=== PATIENT | female | born 2000 | race Hispanic/Latino ===

== ENCOUNTER 2022-06-21 11:58 | Emergency (ER) | payer OTHER ==
[~2022-06-21] VITALS: Ht 160 cm; Wt 80.0 kg
[2022-06-21] VITALS (8 sets, daily range): BP systolic 97–143; BP diastolic 46–74
[~2022-06-21 11:58] MED LIST: IBUPROFEN600 MG PO; TYLENOL # 31 TA1 PO; TYLENOL & COD12.5 ML PO; TYLENOL CHL1 OR; ZITHROMAX250 MG PO
[2022-06-21] MEDS ORDERED: NAPROXEN500 MG PO (14:33)
[2022-06-21] MEDS ORDERED: FLEXERIL5 M1 PO (14:33)
== END 2022-06-21 14:55 | disposition home or self-care (01) ==
LOC: ED 11:58
DX: S16.1XXA Strain of muscle, fascia and tendon at neck level, initial encounter (principal); X50.0XXA Overexertion from strenuous movement or load, initial encounter

== ENCOUNTER 2023-09-17 19:09 | Emergency (ER) | payer OTHER ==
[2023-09-17] VITALS (12 sets, daily range): BP systolic 125–172; BP diastolic 82–105
[~2023-09-17] VITALS: Ht 160 cm; Wt 90.0 kg
[~2023-09-17 19:09] MED LIST changes: +FLEXERIL5 M1 PO; +NAPROXEN500 MG PO
[2023-09-17 20:07] LABS: BASO% 0.4 % (0-3); EOS% 3.1 % (0-8); HEMATOCRIT 29.7 % (37.0-47.0); HEMOGLOBIN 8.6 g/dl (12.0-16.0); LYMPH% 21.8 % (15-41); MEAN CORPUSCULAR HGB 23.5 pG CALC (26.0-32.0); MONO% 6.6 % (2-13); NEUT# 6.72 thou/uL (2.00-7.15); NEUT% 66.1 % (42-76); RED BLOOD COUNT 3.66 mill/uL (4.20-5.60); RED CELL DISTRI WIDTH 27.6 % (11.5-15.5); URINE BILIRUBIN - DIPSTICK Negative (NEGATIVE); URINE BLOOD DIPSTICK Large (NEGATIVE); URINE GLUCOSE - DIPSTICK Negative (NEGATIVE); URINE KETONE Negative (NEGATIVE); URINE NITRITE - DIPSTICK Negative (Negative); URINE PH 7.5 (4.5-8.0); URINE PROTEIN - DIPSTICK >=300 mg/dL (NEG-TRACE); URINE SPECIFIC GRAVITY 1.025; URINE UROBILINOGEN - DIPSTICK 0.2 E.U./dL (0.2)
[2023-09-17 20:08] LABS: MEAN CELL VOLUME 81.1 fL CALC (80.0-100.0)
[2023-09-17 20:09] LABS: URINE COLOR Yellow; URINE LEUK ESTERASE Small (NEGATIVE)
[2023-09-17 20:18] LABS: URINE SQUAMOUS EPITHELIAL CELL FEW EPI/hpf (0-FEW)
[2023-09-17 20:33] LABS: ALBUMIN 3.9 g/dL (3.2-5.0); ANION GAP 11 (6-22 (CALC)); BUN 9 mg/dL (7-17); BUN/CREATININE RATIO 20 (12-20 (CALC)); CARBON DIOXIDE 23 mmol/l (22-30); CHLORIDE 108 mmol/l (95-108); CREATININE 0.5 mg/dL (0.5-1.0); GFR FOR AFR.AMER. > 60 ML/MIN (>=60 (CALC)); GFR OTHER RACES > 60 ML/MIN (>=60 (CALC)); POTASSIUM 3.8 mmol/l (3.5-5.1); SODIUM 139 mmol/l (137-146); TOTAL PROTEIN 7.3 g/dL (6.3-8.2)
[2023-09-17 20:40] LABS: ALKALINE PHOSPHATASE 119 u/l (38-126); BILIRUBIN, TOTAL 0.3 mg/dL (0.02-1.3); SGOT/AST 94 u/l (14-36)
[2023-09-17 21:03] LABS: TSH, 3RD GENERATION 3.02 uIU/mL (0.47 - 4.68)
[2023-09-18 00:34] VITALS: BP 169/101
[2023-09-18 00:46] VITALS: BP 176/102
[2023-09-18 00:53] VITALS: BP 156/98
== END 2023-09-18 01:00 ==
LOC: ED 19:09
PROVIDERS: Family Medicine
DX: O14.95 Unspecified pre-eclampsia, complicating the puerperium (principal); O14.25 HELLP syndrome, complicating the puerperium